=== PATIENT | male | born 1995 | race Two or more races ===

== ENCOUNTER 2018-03-17 13:52 | Emergency (ER) | payer SELFPAY ==
[2018-03-17 14:28] VITALS: BP 125/76
== END 2018-03-17 16:14 | disposition home or self-care (01) ==
LOC: ER 15:55
DX: S60.511A Abrasion of right hand, initial encounter (principal); S50.812A Abrasion of left forearm, initial encounter; X99.1XXA Assault by knife, initial encounter; Y07.59 Other non-family member, perpetrator of maltreatment and neglect; Y93.89 Activity, other specified; Y92.038 Other place in apartment as the place of occurrence of the external cause
CPT/HCPCS: 99282